=== PATIENT | female | born 1990 | race Caucasian/White ===

== ENCOUNTER 2024-04-24 18:06 | Emergency (ER) | payer OTHER, SELFPAY ==
--- NOTE | ~2024-04-24 | US_ITS ---
EXAMINATION: US OBSTETRICAL ULTRASOUND CLINICAL INFORMATION: Significant heavy bleeding. 1 month ago. Assess for retained products of conception. Beta hCG 415 COMPARISON: None available. TECHNIQUE: Multiple sonographic transabdominal and endovaginal views the pelvis obtained. Endovaginal images were needed to better assess the anatomy. FINDINGS: Uterus is anteverted measuring 7.8 x 4.8 x 4.4 cm in size. Endometrium is thickened measuring up to 1.9 cm with increased Doppler flow within this area of thickened endometrium. Retained products of conception would be suspected with the underlying Doppler flow and persistent beta-hCG. Physiologic changes in the bilateral adnexa. The right ovary measures 2.8 x 1.8 x 2.3 cm for a volume of 6 mL. Left ovary measures 3.3 x 1.7 x 1.6 cm for a volume of 4.7 mL. US/US OB pelvic and transvaginal IMPRESSION: Thickened endometrial cavity which demonstrates internal Doppler flow concerning for retained products of conception in this patient with a persistent elevated beta hCG.
[2024-04-24 18:08] VITALS: BP 112/49; PULSE 115; RESP 17; TEMP 36.5; O2SAT 99; BMI 26.1
--- NOTE | 2024-04-24 18:08 | ED.GENADULT ---
HPI - General Adult General Chief complaint: Vaginal Bleeding Stated complaint: hemoraghing Time Seen by Provider: 04/24/24 18:33 Source: patient Mode of arrival: ambulatory Limitations: no limitations History of Present Illness HPI narrative: Patient is a 33-year-old female G3 T2 L2 who presents to the emergency department for evaluation. She reports 15 minutes prior to arrival she began ?gushing blood? described as bright red vaginal bleeding that was ?pouring into the toilet?. She reports her last menstrual period was in January of 2024. She states her march 23 she underwent a medical for which she took metoprolol stone she reports she was approximately 7 weeks at that time, the following day she took misoprostol. She followed up approximately 2 weeks later was advised that on ultrasound there was evidence of a gestational sac, she believes that she passed this the following week. Since then she has been having light vaginal spotting that is pink in color. She denies any abdominal pain, nausea, vomiting, dizziness, lightheadedness. She had an episode of lightheadedness during the initial triage but this has since resolved. Related Data Previous Rx's ?Medication ?Instructions ?Recorded misoprostol 200 mcg tablet 800 mcg (4 x 200 mcg) vaginal ONCE 04/24/24 #4 tabs Allergies Allergy/AdvReac Type Severity Reaction Status Date / Time No Known Allergies Allergy Verified 04/24/24 18:11 Review of Systems Review of Systems: Yes all other systems are reviewed and are negative PMFSH Past Medical History Attestation statement: The following information was validated with the patient. Source: old records reviewed Social History Social History Alcohol intake: current Alcohol intake frequency: holidays/special occasions only Physical Exam ED Vital Signs: Vital Signs - 24 hr 04/24/24 18:08 04/24/24 19:20 04/24/24 21:12 Temperature 97.7 F 98.1 F 98.4 F Pulse Rate 115 H 76 61 Respiratory Rate 17 20 16 Blood Pressure 112/49 L 107/60 93/58 L Pulse Oximetry 99 99 95 Oxygen Delivery Method Room Air Room Air Room Air 04/24/24 22:25 04/24/24 23:26 04/25/24 00:13 Temperature 98.3 F 98.1 F Pulse Rate 70 60 68 Respiratory Rate 14 16 18 Blood Pressure 89/51 L 100/60 105/62 Pulse Oximetry 97 98 97 Oxygen Delivery Method Room Air Room Air Room Air 04/25/24 00:19 Temperature 98.1 F Pulse Rate 68 Respiratory Rate 18 Blood Pressure 105/62 Pulse Oximetry 97 Oxygen Delivery Method Room Air BMI result Body Mass Index 26.1 Course Course Course Narrative: This is a rapid medical exam performed by Lj Denise NP: Additional HPI, ROS, PE not included below will be deferred to primary provider. Patient is a 33-year-old female presenting to the ED complaining of gushing vaginal bleeding which began around 15 minutes ago. LMP was in January, had a medically induced one month ago. Feeling lightheaded. BP 112/49 in triage. Plan: labs, UA, charge aware Reevaluation(s) Reevaluation #1: Land Manager doctor Gregg at bedside and discussed options with patient for treatment. Ultrasound revealing findings concerning for retained products of conception. Patient has elected for additional dosing of misoprostol, repeat hCG ultrasound and re-evaluation emergency department within 48 hours. Discussed strict return precautions. She verbalized understanding US/US OB pelvic and transvaginal IMPRESSION: Thickened endometrial cavity which demonstrates internal Doppler flow concerning for retained products of conception in this patient with a persistent elevated beta hCG. Time: 20:00 Reevaluation #2: At time of discharge patient noted to be mildly hypotensive systolic blood pressure 89/51, asymptomatic. Repeat H&H was obtained, drop in hemoglobin by 1 point. Patient received 1 L normal saline IV fluid with improvement. No further episodes of bleeding. At this time feel she was stable for discharge Medications Administered Discontinued Medications Generic Name Dose Route Start Last Admin Trade Name Freq PRN Reason Stop Dose Admin Sodium Chloride 1,000 mls @ 999 mls/hr 04/24/24 22:30 04/24/24 23:57 Ns IV 04/24/24 23:30 Infused .Q1H1M SARAH Infusion Medical Decision Making Medical Decision Making [facility] Narrative: Patient is a 33-year-old female presents emergency department for evaluation of sudden onset vaginal bleeding as per HPI. At the time of my initial evaluation she overall appears well, nontoxic, afebrile. She is ambulatory with a steady gait. At the time of initial examination she was copious bleeding within the vaginal vault concern for active hemorrhaging, I was able to remove a large clot however bleeding persisted. My attending came to bedside for assistance; utilized and shower to the gain better control of bleeding to visualize the cervix, in additional large clot was removed and able to achieve cessation of bleeding at this time, cervical os, no evidence of lacerations or tears to the vaginal mccauley. Gynecology Dr. Gregg lin has been consulted and will be coming in for evaluation. CBC is without leukocytosis, H and H stable 12.4/35.3 however bleeding began just prior to not anticipate to see a drop this sudden. CMP overall unremarkable. HCG 415. Differential Diagnosis Differential Diagnoses: The differential diagnosis associated with the presentation includes (Vaginal hemorrhage, retained products of conception, miscarriage) Admission/Observation Consideration of admission/observation: Escalation of care including admission/observation considered Consult Healthcare Provider Management of the patient was discussed with: [employer]ice [employer] (See narrative above) Lab Data MDM Lab Attestation statement: I reviewed the patient's lab results. (See narrative above) 04/24/24 22:37 04/24/24 18:30 Labs: Lab Results 04/24/24 04/24/24 04/24/24 Range/Units 18:30 19:33 22:06 WBC 9.4 (4.8-10.8) X10*3/uL RBC 3.77 L (4.20-5.50) X10*6/uL Hgb 12.4 (12.0-16.0) g/dl Hct 35.3 L (37.0-47.0) % MCV 93.6 (80.0-98.0) fL MCH 32.9 (27.0-33.0) pg MCHC 35.1 H (31.0-35.0) g/dl RDW 13.2 (11.0-16.0) % Plt Count 203 (160-400) X10*3/uL MPV 10.1 (9.4-12.3) fL Immature Gran % (Auto) 0.2 (0.0-0.4) % Neut % (Auto) 62.3 (45-73) % Lymph % (Auto) 28.9 (20-40) % [place] % (Auto) 5.7 (2-11) % Eos % (Auto) 2.3 (0-4) % Baso % (Auto) 0.6 (0-2) % Lymph # (Auto) 2.7 (1.2-4.9) X10*3/uL [place] # (Auto) 0.5 (0.1-1.2) X10*3/uL Eos # (Auto) 0.2 (0.0-0.4) X10*3/uL Baso # (Auto) 0.1 (0.0-0.2) X10*3/uL Abs Immat Gran (auto) 0.02 (0.00-0.03) X10*3/uL Absolute Neuts (auto) 5.8 (2.0-8.3) x10*3/uL Absolute Nucleated RBC 0.000 (0.0-0.012) X10*3/uL Nucleated RBC % (auto) 0.0 (0.0-0.2) /100WBC Sodium 139 (135-145) mmol/L Potassium 3.8 (3.3-5.1) mmol/L Chloride 105 (96-108) mmol/L Carbon Dioxide 23 (22-29) mmol/L Anion Gap 15 (12-20) BUN 11 (9-16) mg/dL Creatinine 0.69 (0.5-1.4) mg/dL Estim Creat Clear Calc 112.5 Estimated GFR > 60 Random Glucose 160 H (60-115) mg/dL Calcium 9.2 (8.4-10.2) mg/dL Total Bilirubin 0.5 (0.0-1.0) mg/dL AST 14 (5-31) U/L ALT 9 (0-31) U/L Alkaline Phosphatase 51 (39-117) U/L Total Protein 6.8 (6.5-8.0) g/dL Albumin 4.1 (3.5-5.0) g/dL Beta HCG, Quant 415 mIU/mL Urine Color Yellow Urine Appearance Clear Urine pH 5.5 (5.0-9.0) Ur Specific [place] 1.025 (1.005-1.025) Urine Protein Negative (Neg-Trace) mg/dL Urine Glucose (UA) Negative (Negative) mg/dL Urine Ketones 40 (Negative) mg/dL Urine Blood Small (1+) H (Negative) Urine Nitrite Negative (Negative) Ur Leukocyte Esterase Negative (Negative) Urine RBC 3-5 H (0-2) /HPF Urine WBC 0-5 (0-5) /HPF Ur Squamous Epith Cells 3-5 (0-2) /HPF Urine Bacteria None Seen (None Seen) Hyaline Casts 0-2 (0-2) /LPF Blood Type B Positive Antibody Screen NEGATIVE 04/24/24 Range/Units 22:37 WBC 9.4 (4.8-10.8) X10*3/uL RBC 3.51 L (4.20-5.50) X10*6/uL Hgb 11.5 L (12.0-16.0) g/dl Hct 32.7 L (37.0-47.0) % MCV 93.2 (80.0-98.0) fL MCH 32.8 (27.0-33.0) pg MCHC 35.2 H (31.0-35.0) g/dl RDW 13.3 (11.0-16.0) % Plt Count 166 (160-400) X10*3/uL MPV 9.9 (9.4-12.3) fL Immature Gran % (Auto) 0.3 (0.0-0.4) % Neut % (Auto) 77.0 H (45-73) % Lymph % (Auto) 16.5 L (20-40) % [place] % (Auto) 4.9 (2-11) % Eos % (Auto) 0.9 (0-4) % Baso % (Auto) 0.4 (0-2) % Lymph # (Auto) 1.6 (1.2-4.9) X10*3/uL [place] # (Auto) 0.5 (0.1-1.2) X10*3/uL Eos # (Auto) 0.1 (0.0-0.4) X10*3/uL Baso # (Auto) 0.0 (0.0-0.2) X10*3/uL Abs Immat Gran (auto) 0.03 (0.00-0.03) X10*3/uL Absolute Neuts (auto) 7.2 (2.0-8.3) x10*3/uL Absolute Nucleated RBC 0.000 (0.0-0.012) X10*3/uL Nucleated RBC % (auto) 0.0 (0.0-0.2) /100WBC Sodium (135-145) mmol/L Potassium (3.3-5.1) mmol/L Chloride (96-108) mmol/L Carbon Dioxide (22-29) mmol/L Anion Gap (12-20) BUN (9-16) mg/dL Creatinine (0.5-1.4) mg/dL Estim Creat Clear Calc Estimated GFR Random Glucose (60-115) mg/dL Calcium (8.4-10.2) mg/dL Total Bilirubin (0.0-1.0) mg/dL AST (5-31) U/L ALT (0-31) U/L Alkaline Phosphatase (39-117) U/L Total Protein (6.5-8.0) g/dL Albumin (3.5-5.0) g/dL Beta HCG, Quant mIU/mL Urine Color Urine Appearance Urine pH (5.0-9.0) Ur Specific [place] (1.005-1.025) Urine Protein (Neg-Trace) mg/dL Urine Glucose (UA) (Negative) mg/dL Urine Ketones (Negative) mg/dL Urine Blood (Negative) Urine Nitrite (Negative) Ur Leukocyte Esterase (Negative) Urine RBC (0-2) /HPF Urine WBC (0-5) /HPF Ur Squamous Epith Cells (0-2) /HPF Urine Bacteria (None Seen) Hyaline Casts (0-2) /LPF Blood Type Antibody Screen Radiology Impression Discussion of test interpretation with radiology: I have reviewed the radiologist's reading. Independent Historian Clinical information obtained from an independent historian. History obtained from or confirmed by: Spouse Discharge Plan Discharge Clinical Impression: Abnormal vaginal bleeding, Incomplete Patient Disposition: Home, Self-Care Additional Instructions: As discussed, please 4 tablets of misoprostol 200 mcg for a total of 800 mcg into the vagina. Reasons to return back to emergency department; if you develop no symptoms or passing of gestational tissue after the medication, severe abdominal pain that continues after passing the tissue, persistent pain bleeding that does not decrease after passing the tissue, soaking to maxi pads per hour for 2 hours back to back. As discussed, it is likely that you should passed the tissue within 4 hours after taking the misoprostol. If you develop a fever or worsening pain should be re-evaluated right away. Return to emergency department in 48 hours for repeat hCG ultrasound and evaluation. Prescriptions: New misoprostol 200 mcg tablet 800 mcg vaginal ONCE Qty: 4 0RF Referrals: Blu Escobedo MD [Physician] - Interventions: ED Discharge Assessment Last Done: 04/25/24 00:19 Discharge Date/Time: 04/25/24 00:20 Print Language: Macanese
[2024-04-24 18:35] LABS: MANUAL DIFF FLAG NO
[2024-04-24 18:36] LABS: Basophils Absolute Auto 0.1 X10*3/uL (0.0-0.2); Basophils Percent Auto 0.6 % (0-2); Eosinophils Absolute Auto 0.2 X10*3/uL (0.0-0.4); Eosinophils Percent Auto 2.3 % (0-4); Hematocrit 35.3 % (37.0-47.0); Hemoglobin 12.4 g/dl (12.0-16.0); Imm Gran Abs Auto 0.02 X10*3/uL (0.00-0.03); Imm Gran Pct Auto 0.2 % (0.0-0.4); Lymphocytes Absolute Auto 2.7 X10*3/uL (1.2-4.9); Lymphocytes Percent Auto 28.9 % (20-40); Mean Corpuscular HGB Conc 35.1 g/dl (31.0-35.0); Mean Corpuscular Hemoglobin 32.9 pg (27.0-33.0); Mean Corpuscular Volume 93.6 fL (80.0-98.0); Mean Platelet Volume 10.1 fL (9.4-12.3); Monocytes Absolute Auto 0.5 X10*3/uL (0.1-1.2); Monocytes Percent Auto 5.7 % (2-11); Neutrophils Absolute Auto 5.8 x10*3/uL (2.0-8.3); Neutrophils Percent Auto 62.3 % (45-73); Platelet Count 203 X10*3/uL (160-400); Red Blood Count 3.77 X10*6/uL (4.20-5.50); Red Cell Distribution Width 13.2 % (11.0-16.0); White Blood Count 9.4 X10*3/uL (4.8-10.8)
[2024-04-24 18:59] LABS: Alanine Aminotransferase 9 U/L (0-31); Albumin Level 4.1 g/dL (3.5-5.0); Alkaline Phosphatase 51 U/L (39-117); Anion Gap 15 (12-20); Aspartate Amino Transferase 14 U/L (5-31); Bilirubin Total 0.5 mg/dL (0.0-1.0); Blood Urea Nitrogen 11 mg/dL (9-16); Calcium 9.2 mg/dL (8.4-10.2); Carbon Dioxide 23 mmol/L (22-29); Chloride 105 mmol/L (96-108); Creatinine Clr Calc Pharmacy 112.5; Estimated Glomerular Filt Rate > 60; Glucose Random 160 mg/dL (60-115); HCG Quantitative 415 mIU/mL; Potassium 3.8 mmol/L (3.3-5.1); Sodium 139 mmol/L (135-145); Total Protein 6.8 g/dL (6.5-8.0)
[2024-04-24 19:20] VITALS: BP 107/60; PULSE 76; RESP 20; TEMP 36.7; O2SAT 99
--- NOTE | 2024-04-24 19:28 | P.CONOB_ITS ---
[employer] - CN: HPI Data of Consult Consult date: 04/24/24 Primary Care Provider: None Physician Consult Narrative Narrative: I was consulted on Soraida Villa who is a 33 year old female presented to the emergency room with vaginal bleeding. The patient had medical termination of in [place] and a month ago with Mifeprosrone and misoprostol, she developed vaginal bleeding passage of blood clots and tissues that resolved complete after few hours, the patient developed headache a week afterward and she went to an urgent care where a pelvic ultrasound according to patient was done and showed an intrauterine gestational sac, the patient had vaginal bleeding with passage of tissues and blood clots and her bleeding resolved complete till 50 minutes prior to presentation the patient started bleeding heavy with passage of clots. In the emergency room bleeding completely resolved within 15 minutes after removal of vaginal blood clots. The following workup was done H&H 12.4/35.5, hCG= 415, blood type B positive, Rh negative. Pelvic ultrasound was done cc:: CC: OB [facility] Social History Social History Alcohol intake: current Alcohol intake frequency: holidays/special occasions only Meds Allergies Allergy/AdvReac Type Severity Reaction Status Date / Time No Known Allergies Allergy Verified 04/24/24 18:11 [employer] Physical Exam Vitals Vital signs: Temp Pulse Resp BP Pulse Ox O2 Del Method 98.1 F 76 20 107/60 99 Room Air 04/24/24 19:20 04/24/24 19:20 04/24/24 19:20 04/24/24 19:20 04/24/24 19:20 04/24/24 19:20 BMI result Body Mass Index 26.1 Abdomen Auscultation/Inspection/Palpation: Normal bowel sounds, Soft and No tenderness Female Genitalia (Pelvic) Bladder/Urethra: Normal meatus Vulva: No lesions Lesion: Pustule Vagina: Nontender Adnexa/Parametria: Adnexal Tenderness: None, Adnexal Mass: None, Parametrial Tenderness: None and Parametrial Mass: None Additional Comments: No evidence of vaginal bleeding closed cervix [employer] - Results Labs 04/24/24 18:30 04/24/24 18:30 Labs: Short CBC 04/24/24 Range/Units 18:30 WBC 9.4 (4.8-10.8) X10*3/uL Hgb 12.4 (12.0-16.0) g/dl Hct 35.3 L (37.0-47.0) % Plt Count 203 (160-400) X10*3/uL BMP 04/24/24 18:30 Sodium 139 Potassium 3.8 Chloride 105 Carbon Dioxide 23 BUN 11 Creatinine 0.69 Calcium 9.2 Liver Function 04/24/24 Range/Units 18:30 Total Bilirubin 0.5 (0.0-1.0) mg/dL AST 14 (5-31) U/L ALT 9 (0-31) U/L Alkaline Phosphatase 51 (39-117) U/L Albumin 4.1 (3.5-5.0) g/dL Imaging US - abdomen: Radiologist's impression: ITS Impressions Pelvic/Transvag US 04/24/24 19:44 IMPRESSION: Thickened endometrial cavity which demonstrates internal Doppler flow concerning for retained products of conception in this patient with a persistent elevated beta hCG. Assessment and Plan (1) Abnormal vaginal bleeding: Status: Acute GC/CT, Trichomonas and BV panel taken. Discussed with the patient the finding on pelvic exam, the results of her hCG, H&H and ultrasound results, her clinical screnario, the differential diagnosis of her clinical situation including not limited to complete , incomplete /retained products of conception, ectopic . Since there was no evidence of any active vaginal bleeding, the options of treatment were given the patient included the following: Expectant management with repeat hCG in 48 hours and reevaluation in the emergency room, misoprostol 800 mcg vaginal for possible incomplete /retained products of conception, or suction D&C (explained to the patient that this is preferred method of treatment). All pros and cons, risks and benefits of each option were discussed with the patient, the patient decided to proceed with misoprostol treatment. Explained to the patient that compared to uterine aspiration, misoprostol takes longer to complete, requires more active patient participation. The uterine aspiration procedure, on the other hand, is slightly more effective, takes place in one visit, and allows for direct assessment of tissue by the clinician. The patient chose to proceed with Misoprostol. I discussed with her the risk of uterine rupture with Misoprostol, as well as the potential development of congenital abnormalities associated with Misoprostol, including but not limited to scalp or skull defects, cranial nerve palsies (Moebius syndrome), and limb deficiencies (e.g., equinovarus). After choosing misoprostol, I reviewed the steps of the procedure with the patient, and she confirmed her willingness and ability to complete each step. instructions were given to the patient to place 4 tablets of 200 mcg misoprostol for a total of 800 mcg vaginally. Comprehensive counseling about the expected experience, symptoms, recovery, and the possibility of needing a surgical procedure if medication is unsuccessful was provided. I reviewed typical symptoms and the experience of passing gestational tissue with the patient. I emphasized concerning symptoms and the experience of passing gestational tissue with the patient. I emphasized concerning symptoms to watch for, to call the office or go to emergency room for including but not limited: If nothing /no symptoms occurred after taking both medications , severe abdominal pain that persists after passing tissue, persistent pain without bleeding or tissue passage, bleeding that does not decrease after passing tissue, or soaking two maxi pads per hour for two consecutive hours. Lastly, I explained to the patient that after taking Misoprostol, is likely to occur within the next several hours, with a high proportion of patients aborting within four hours after taking vaginal Misoprostol. The patient asked questions, verbalized understanding, and agreed with the plan. Instructions given to the patient to come back to emergency room in case of vaginal bleeding, fever above 100.4, pelvic pain and to follow-up in 48 hours in the emergency room for repeat hCG and re-evaluation. All questions answered, the patient verbalized understanding especially the urgency and importance of close follow-up. Explained to the patient that I will be on vacation and therefore not be available in the office for the the coming week, therefore she needs to come back to the emergency room for follow-up/evaluation/hCG in 48 hours and in case of development of any of the above-mentioned symptoms prior to that. Discussed the recommended plan with CALLIE Boogie in the emergency will send the prescription for misoprostol to the patient's pharmacy. This note was generated with a voice recognition program. Some errors may have been overlooked during the review of this note. Sometimes these errors may affect the content or meaning of a given sentence.
--- NOTE | 2024-04-24 20:04 | MHC.EDTECH ---
Assisted with a pelvic exam,trich,BV,and ctng swabs obtained and sent to lab,patient had no bleeding on exam,patient tolerated procedure well.
[2024-04-24 21:12] VITALS: BP 93/58; PULSE 61; RESP 16; TEMP 36.9; O2SAT 95
[2024-04-24 22:17] LABS: Appearance Urine Clear; Color Urine Yellow; Glucose Urine UA Negative (Negative); Leukocyte Esterase Urine Negative (Negative); Nitrite Urine Negative (Negative); PH 5.5 (5.0-9.0); Specific Gravity - Urine 1.025 (1.005-1.025); UMIC TRIGGER UACC YES; Urine Blood Small (1+) (Negative); Urine Ketones 40 mg/dL (Negative); Urine Protein Negative (Neg-Trace)
[2024-04-24 22:25] VITALS: BP 89/51; PULSE 70; RESP 14; TEMP 36.8; O2SAT 97
[2024-04-24] MEDS: 0.9 % Sodium Chloride 1,000 ML 999 ML IV (22:34)
[2024-04-24 22:37] LABS: Bacteria Urine None Seen (None Seen); Hyaline Casts Urine 0-2 /LPF (0-2); WBC Urine 0-5 /HPF (0-5)
[2024-04-24 22:43] LABS: MANUAL DIFF FLAG NO
[2024-04-24 22:48] LABS: Basophils Percent Auto 0.4 % (0-2); Eosinophils Absolute Auto 0.1 X10*3/uL (0.0-0.4); Eosinophils Percent Auto 0.9 % (0-4); Hematocrit 32.7 % (37.0-47.0); Hemoglobin 11.5 g/dl (12.0-16.0); Imm Gran Abs Auto 0.03 X10*3/uL (0.00-0.03); Imm Gran Pct Auto 0.3 % (0.0-0.4); Lymphocytes Absolute Auto 1.6 X10*3/uL (1.2-4.9); Lymphocytes Percent Auto 16.5 % (20-40); Mean Corpuscular HGB Conc 35.2 g/dl (31.0-35.0); Mean Corpuscular Hemoglobin 32.8 pg (27.0-33.0); Mean Corpuscular Volume 93.2 fL (80.0-98.0); Mean Platelet Volume 9.9 fL (9.4-12.3); Monocytes Absolute Auto 0.5 X10*3/uL (0.1-1.2); Monocytes Percent Auto 4.9 % (2-11); Neutrophils Absolute Auto 7.2 x10*3/uL (2.0-8.3); Platelet Count 166 X10*3/uL (160-400); Red Blood Count 3.51 X10*6/uL (4.20-5.50); Red Cell Distribution Width 13.3 % (11.0-16.0); White Blood Count 9.4 X10*3/uL (4.8-10.8)
[2024-04-24 23:26] VITALS: BP 100/60; PULSE 60; RESP 16; O2SAT 98
[2024-04-25 00:13] VITALS: BP 105/62; PULSE 68; RESP 18; TEMP 36.7; O2SAT 97
[2024-04-25 00:19] VITALS: BP 105/62; PULSE 68; RESP 18; TEMP 36.7; O2SAT 97
[2024-04-25 02:18] LABS: CT PCR DETECTED (Not Detect.); NG PCR NOT DETECTED (Not Detect.)
[2024-04-25 09:00] LABS: Bacterial Vaginosis PCR POSITIVE (Negative); Candida Group PCR NOT DETECTED (Not Detect); Candida glab krusei PCR NOT DETECTED (Not Detect); Trichomonas vaginalis PCR NOT DETECTED (Not Detect)
== END 2024-04-25 00:20 | disposition home or self-care (01) ==
PROVIDERS: Nurse Practitioner Family; Registered Nurse Emergency; Emergency Provider Internal Medicine
DX: O03.1 Delayed or excessive hemorrhage following incomplete spontaneous abortion (principal); N93.9 Abnormal uterine and vaginal bleeding, unspecified; I95.89 Other hypotension
CPT/HCPCS: 0352U; 36415; 76801; 76817; 80053; 81001; 84702; 85025; 86850; 86900; 86901; 87491; 87591; 96360; 99284

== ENCOUNTER → 2024-04-24 20:13 | Outpatient (BNV) | payer OTHER, SELFPAY | PROVIDERS: Emergency Provider Internal Medicine; Visit Provider Obstetrics & Gynecology | DX: N93.9 Abnormal uterine and vaginal bleeding, unspecified (principal) | CPT/HCPCS: 99283 ==